=== PATIENT | female | born 1995 | race African-American/Black ===

== ENCOUNTER 2017-02-14 18:51 | Emergency (ER) | payer OTHER ==
--- NOTE | 2017-02-14 19:45 | UC ---
Complaint Female HPI - HPI Summary HPI Summary: pain and burning with urination began today---also noted hematuria today, lower abd pain no fevers chills nausea vomiting or back pain - History Of Current Complaint Chief Complaint: UCGU Stated Complaint: UTI COMPLAINT Time Seen by Provider: 02/14/17 19:36 Hx Obtained From: Patient Hx Last Menstrual Period: February 13, 2017 ?: No Onset/Duration: Sudden Onset, Lasting Days - 1, Still Present Timing: Constant Severity Initially: Mild Severity Currently: Moderate Pain Intensity: 5 Pain Scale Used: 0-10 Numeric Character: Burning Aggravating Factor(s): Urination Alleviating Factor(s): Nothing Associated Signs And Symptoms: Positive: Negative - Allergies/Home Medications Allergies/Adverse Reactions: Allergies Allergy/AdvReac Type Severity Reaction Status Date / Time Amoxicillin Allergy Hives/Diff. Verified 02/14/17 19:32 Breathing/I tching Home Medications: Home Medications Levonorgestrel & Eth Estradiol [Aubra 0.1-20 mg-Mcg] 02/14/17 [History] PMH/Surg Hx/FS Hx/Imm Hx Previously Healthy: No Respiratory History Of: Reports: Asthma - Surgical History Surgical History: None - Family History Known Family History: Positive: Respiratory Disease - Social History Occupation: Student Lives: With Family Alcohol Use: None Substance Use Type: Marijuana Smoking Status (MU): Never Smoked Tobacco Review of Systems Constitutional: Negative Skin: Negative Eyes: Negative ENT: Negative Respiratory: Negative Cardiovascular: Negative Gastrointestinal: Negative Genitourinary: Dysuria, Hematuria, Frequency, Urgency Motor: Negative Neurovascular: Negative Musculoskeletal: Negative Neurological: Negative Psychological: Negative All Other Systems Reviewed And Are Negative: Yes Physical Exam Triage Information Reviewed: Yes Appearance: Well-Appearing, No Pain Distress, Well-Nourished Vital Signs: Initial Vital Signs Temp 98.3 F 02/14/17 19:24 Pulse 89 02/14/17 19:24 Resp 16 02/14/17 19:24 BP 105/68 02/14/17 19:24 Pulse Ox 94 02/14/17 19:24 Vital Signs Reviewed: Yes Eye Exam: Normal Eyes: Positive: Conjunctiva Clear ENT Exam: Normal ENT: Positive: Normal ENT inspection, Hearing grossly normal, Pharynx normal. Negative: Nasal congestion, Nasal drainage, TMs normal, Tonsillar swelling, Tonsillar exudate, Trismus, Muffled/hoarse voice Dental Exam: Normal Neck exam: Normal Neck: Positive: Supple, Nontender Respiratory Exam: Normal Respiratory: Positive: Chest non-tender, No respiratory distress, No accessory muscle use Cardiovascular Exam: Normal Cardiovascular: Positive: RRR, Pulses Normal, Brisk Capillary Refill Abdominal Exam: Normal Abdomen Description: Positive: Nontender. Negative: CVA Tenderness (R), CVA Tenderness (L) Bowel Sounds: Positive: Present Musculoskeletal Exam: Normal Musculoskeletal: Positive: Strength Intact, ROM Intact, No Edema Neurological Exam: Normal Neurological: Positive: Alert, Muscle Tone Normal Psychological Exam: Normal Skin Exam: Normal Complaint Female Dx - Course Course Of Treatment: Bactrim AZO increase fluids follow at [facility] PRN - Differential Dx/Diagnosis Differential Diagnosis/HQI/PQRI: , Renal Colic, Ureteral Stone, Urinary Tract Infection Provider Diagnoses: UTI Discharge - Discharge Plan Condition: Stable Disposition: HOME Prescriptions: Sulfamethox/Trimethoprim DS* [Bactrim DS 800/160 TAB*] 1 tab PO BID #9 tab Patient Education Materials: Phenazopyridine (By mouth), Urinary Tract Infection in Women (ED) Referrals: [facility] [Outside] - If Needed No Primary Care Phys,NOPCP [Primary Care Provider] -
[2017-02-14] MEDS ORDERED: Sulfamethox/Trimethoprim DS 800/160* TAB PO ONE ×2 (20:06→20:12)
[2017-02-14] MEDS ORDERED: Phenazopyridine TAB* 100 MG PO ONE (20:11)
== END 2017-02-14 20:29 | disposition home or self-care (01) ==
LOC: UCEAST 18:51
DX: N39.0 Urinary tract infection, site not specified (principal); R31.9 Hematuria, unspecified; J45.909 Unspecified asthma, uncomplicated; Z88.1 Allergy status to other antibiotic agents; Z32.02 Encounter for pregnancy test, result negative
CPT/HCPCS: 81003; 84702; 87077; 87086; 99203; A9270-GY; G0463

== ENCOUNTER 2017-11-10 13:49 | Emergency (ER) | payer OTHER ==
[2017-11-10 17:33] LABS: EGFR Non-African American 94.2 (>60)
[2017-11-10 17:34] LABS: ABS Basophils 0.1 10^3/ul (0-0.2); ABS Eosinophils 0.1 10^3/ul (0-0.6); ABS Lymphocytes 2.6 10^3/ul (1.0-4.8); ABS Monocytes 0.7 10^3/ul (0-0.8); ABS Neutrophils 7.9 10^3/ul (1.5-7.7); ABS Nucleated RBC 0 10^3/ul; Hematocrit 36 % (35-47); Hemoglobin 11.5 g/dl (12.0-16.0); Lymphocyte % 23.1 % (25-47); Mean Corpuscular HGB Conc 32 g/dl (31-36); Mean Corpuscular Hemoglobin 28 pg (27-31); Mean Corpuscular Volume 87 fL (80-97); Mean Platelet Volume 8 um3 (7.4-10.4); Nucleated Red Blood Cells % 0.1; Platelet Count 397 10^3/ul (150-450); Red Blood Count 4.08 10^6/ul (4.0-5.4); Red Cell Distribution Width 13 % (10.5-15); White Blood Count 11.3 10^3/ul (3.5-10.8)
[2017-11-10] MEDS ORDERED: Iohexol 350* (CONTRAST) 500 ML MDV IV ONE (18:19)
--- NOTE | 2017-11-10 18:39 | RAD ---
Indication: Chest pain. 2 views of the chest including dual energy PA views demonstrate no mediastinal shift. Heart is of normal size and configuration. Lung vidal appear clear. IMPRESSION: No active cardiopulmonary disease is noted.
--- NOTE | 2017-11-10 19:22 | RAD ---
Indication: Chest pain, shortness of breath. Contrast: Administered 60.1 ml of OMNIPAQUE 350 mg/ml CTA of the chest was performed after IV contrast administration. Coronal and sagittal reconstructed images were obtained. The pulmonary arterial tree is well opacified. There are no filling defects present to suggest pulmonary embolus. Thoracic aorta demonstrates no aneurysmal dilatation or aortic dissection. The heart demonstrates no pericardial effusion. There is no mediastinal or hilar adenopathy noted. There is soft tissue in the prevascular space consistent with residual thymus. The trachea and major bronchi appear patent. Lung vidal demonstrate no alveolar consolidation. No pleural fluid is identified. The visualized abdominal organs are unremarkable. The bony structures are unremarkable. IMPRESSION: No evidence of pulmonary embolus is noted. No pulmonary nodules are noted.
[2017-11-10 20:14] VITALS: BP 104/63
--- NOTE | 2017-11-22 14:13 | ED ---
Gurmeet Mac Stephanie, scribed for Denzel Mcneal MD on 11/10/17 at 2013 . HPI Cardiac - HPI Summary HPI Summary: The pt is a 22 y/o F presenting to the ED with c/o palpitations that began 3 days ago on 11/07/17. The palpitations are intermittent and non-exertional. The pt drove by car from [facility] yesterday. The pt reports symptoms of SOB and substernal chest discomfort today. The pt reports that she takes contraceptives. She is currently symptom-free. The pt reports significant stress with classes starting at [employer]. The pt denies SI and HI. She has been taking pseudoephedrine for cold. - History of Current Complaint Chief Complaint: EDChestWallPain Stated Complaint: CHEST TIGHTNESS Time Seen by Provider: 11/10/17 18:14 Hx Obtained From: Patient Hx Last Menstrual Period: February 13, 2017 Onset/Duration: Started Days Ago - 3, Resolved Timing: Intermittent Pain Intensity: 0 Pain Scale Used: 0-10 Numeric Character: Other: - substernal chest discomfort Aggravating Factor(s): Nothing Alleviating Factor(s): Nothing Associated Signs and Symptoms: Positive: Shortness of Breath - Allergy/Home Medications Allergies/Adverse Reactions: Allergies Allergy/AdvReac Type Severity Reaction Status Date / Time Amoxicillin Allergy Hives/Diff. Verified 02/14/17 19:32 Breathing/I tching PMH/Surg Hx/FS Hx/Imm Hx Endocrine/Hematology History: Denies: Hx Diabetes Cardiovascular History: Denies: Hx Hypertension Respiratory History: Reports: Hx Asthma History: Denies: Hx Renal Disease - Cancer History Cancer Type, Location and Year: none - Surgical History Surgery Procedure, Year, and Place: None Infectious Disease History: No Infectious Disease History: Denies: Traveled Outside the [place] in Last 30 Days - Family History Known Family History: Positive: Respiratory Disease - Social History Occupation: Student Lives: Dormitory/Roommates Alcohol Use: None Substance Use Type: Reports: None, Marijuana Smoking Status (MU): Never Smoked Tobacco Review of Systems Negative: Fever, Chills Negative: Erythema Negative: Sore Throat Positive: Palpitations, Other - chest discomfort. Negative: Chest Pain Positive: Shortness Of Breath. Negative: Cough Negative: Abdominal Pain, Vomiting, Nausea Negative: dysuria, hematuria Negative: Myalgia, Edema Negative: Rash Neurological: Other - Negative: dizziness All Other Systems Reviewed And Are Negative: Yes Physical Exam - Summary Physical Exam Summary: Constitutional: Well-developed, Well-nourished, Alert. (-) Distressed Skin: Warm, Dry HENT: Normocephalic; Atraumatic Eyes: Conjunctiva normal Neck: Musculoskeletal ROM normal neck. (-) JVD, (-) Stridor, (-) Tracheal deviation Cardio: Rhythm regular, rate normal, Heart sounds normal; Intact distal pulses; The pedal pulses are 2+ and symmetric. Radial pulses are 2+ and symmetric. (-) Murmur Pulmonary/Chest wall: Effort normal. (-) Respiratory distress, (-) Wheezes, (-) Rales Abd: Soft, (-) Tenderness, (-) Distension, (-) Guarding, (-) Rebound Musculoskeletal: (-) Edema Lymph: (-) Cervical adenopathy Neuro: Alert, Oriented x3 Psych: Mood and affect Normal Triage Information Reviewed: Yes Vital Signs On Initial Exam: Initial Vitals Temp Pulse Resp BP Pulse Ox 99.3 F 81 18 113/57 100 11/10/17 13:56 11/10/17 13:56 11/10/17 13:56 11/10/17 13:56 11/10/17 13:56 Vital Signs Reviewed: Yes Diagnostics - Vital Signs Vital Signs Temp Pulse Resp BP Pulse Ox 11/10/17 19:30 101 21 103/63 100 11/10/17 19:11 107/62 11/10/17 19:00 85 15 100 11/10/17 18:28 73 15 100 11/10/17 18:26 111/63 11/10/17 18:01 98.8 F 84 14 101/62 100 11/10/17 15:00 98.6 F 81 16 99/60 100 11/10/17 13:56 99.3 F 81 18 113/57 100 - Laboratory Lab Results: Lab Results 11/10/17 11/10/17 11/10/17 Range/Units 17:00 17:00 17:00 WBC 11.3 H (3.5-10.8) 10^3/ul RBC 4.08 (4.0-5.4) 10^6/ul Hgb 11.5 L (12.0-16.0) g/dl Hct 36 (35-47) % MCV 87 (80-97) fL MCH 28 (27-31) pg MCHC 32 (31-36) g/dl RDW 13 (10.5-15) % Plt Count 397 (150-450) 10^3/ul MPV 8 (7.4-10.4) um3 Neut % (Auto) 69.6 (38-83) % Lymph % (Auto) 23.1 L (25-47) % [place] % (Auto) 5.8 (1-9) % Eos % (Auto) 1.0 (0-6) % Baso % (Auto) 0.5 (0-2) % Absolute Neuts (auto) 7.9 H (1.5-7.7) 10^3/ul Absolute Lymphs (auto) 2.6 (1.0-4.8) 10^3/ul Absolute Monos (auto) 0.7 (0-0.8) 10^3/ul Absolute Eos (auto) 0.1 (0-0.6) 10^3/ul Absolute Basos (auto) 0.1 (0-0.2) 10^3/ul Absolute Nucleated RBC 0 10^3/ul Nucleated RBC % 0.1 D-Dimer, Quantitative 218 (Less Than 230) ng/mL Sodium (133-145) mmol/L Potassium (3.5-5.0) mmol/L Chloride (101-111) mmol/L Carbon Dioxide (22-32) mmol/L Anion Gap (2-11) mmol/L BUN (6-24) mg/dL Creatinine (0.51-0.95) mg/dL Est GFR ( Amer) (>60) Est GFR (Non-Af Amer) (>60) BUN/Creatinine Ratio (8-20) Glucose (70-100) mg/dL Lactic Acid (0.5-2.0) mmol/L Calcium (8.6-10.3) mg/dL Total Bilirubin (0.2-1.0) mg/dL AST (13-39) U/L ALT (7-52) U/L Alkaline Phosphatase (34-104) U/L Troponin I 0.00 (<0.04) ng/mL Total Protein (6.4-8.9) g/dL Albumin (3.2-5.2) g/dL Globulin (2-4) g/dL Albumin/Globulin Ratio (1-3) Beta HCG, Quant mIU/mL 11/10/17 11/10/17 Range/Units 17:00 17:00 WBC (3.5-10.8) 10^3/ul RBC (4.0-5.4) 10^6/ul Hgb (12.0-16.0) g/dl Hct (35-47) % MCV (80-97) fL MCH (27-31) pg MCHC (31-36) g/dl RDW (10.5-15) % Plt Count (150-450) 10^3/ul MPV (7.4-10.4) um3 Neut % (Auto) (38-83) % Lymph % (Auto) (25-47) % [place] % (Auto) (1-9) % Eos % (Auto) (0-6) % Baso % (Auto) (0-2) % Absolute Neuts (auto) (1.5-7.7) 10^3/ul Absolute Lymphs (auto) (1.0-4.8) 10^3/ul Absolute Monos (auto) (0-0.8) 10^3/ul Absolute Eos (auto) (0-0.6) 10^3/ul Absolute Basos (auto) (0-0.2) 10^3/ul Absolute Nucleated RBC 10^3/ul Nucleated RBC % D-Dimer, Quantitative (Less Than 230) ng/mL Sodium 137 (133-145) mmol/L Potassium 4.1 (3.5-5.0) mmol/L Chloride 105 (101-111) mmol/L Carbon Dioxide 26 (22-32) mmol/L Anion Gap 6 (2-11) mmol/L BUN 11 (6-24) mg/dL Creatinine 0.78 (0.51-0.95) mg/dL Est GFR ( Amer) 121.1 (>60) Est GFR (Non-Af Amer) 94.2 (>60) BUN/Creatinine Ratio 14.1 (8-20) Glucose 82 (70-100) mg/dL Lactic Acid 1.1 (0.5-2.0) mmol/L Calcium 9.3 (8.6-10.3) mg/dL Total Bilirubin 0.40 (0.2-1.0) mg/dL AST 21 (13-39) U/L ALT 13 (7-52) U/L Alkaline Phosphatase 37 (34-104) U/L Troponin I 0.01 (<0.04) ng/mL Total Protein 7.4 (6.4-8.9) g/dL Albumin 4.1 (3.2-5.2) g/dL Globulin 3.3 (2-4) g/dL Albumin/Globulin Ratio 1.2 (1-3) Beta HCG, Quant < 0.60 mIU/mL Result Diagrams: 11/10/17 17:00 11/10/17 17:00 Lab Statement: Any lab studies that have been ordered have been reviewed, and results considered in the medical decision making process. - Radiology CXR Xray Interpretation: No Acute Changes Radiology Interpretation Completed By: Radiologist - No active cardiopulmonary disease is noted. - CT CTA CT Interpretation: No Acute Changes CT Interpretation Completed By: Radiologist - No evidence of pulmonary embolus is noted. No pulmonary nodules are noted. - EKG 14:10 EKG Rhythm: Sinus Rhythm - 85 BPM EKG Interpretation: No Stemi Disposition - Course Course Of Treatment: EKG negative. No signs of pericarditis on EKG. Troponin negative. CTA negative for PE. Mi and PE ruled out. ED physician suspects stress response. Follow up with [facility] within 24 hrs. - Diagnoses Provider Diagnoses: Palpitations, Stress, Medication adverse effect Discharge - Discharge Plan Condition: Good Disposition: HOME Patient Education Materials: Heart Palpitations (ED), Stress (ED) Referrals: [facility] Prince MARSHALL [Primary Care Provider] - ([facility] WITHIN 24- 48 HOURS) Additional Instructions: Stop taking the sudafed. Plenty of rest. Seek out stress mitigation at [facility]. Return to ER for changing, worsening or persistent symptoms. Follow up with [facility] in 24 hrs. The documentation as recorded by the Gurmeet ashton Stephanie accurately reflects the service I personally performed and the decisions made by , Denzel Mcneal MD.
== END 2017-11-10 20:13 | disposition home or self-care (01) ==
LOC: ED 13:49
DX: T44.995A Adverse effect of other drug primarily affecting the autonomic nervous system, initial encounter (principal); R06.02 Shortness of breath; R00.2 Palpitations; F43.9 Reaction to severe stress, unspecified; Y92.9 Unspecified place or not applicable
CPT/HCPCS: 36415; 71045; 71275; 80053; 83605; 84484; 84702; 85025; 85379; 93005; 99283; Q9967